=== PATIENT | female | born 1990 | race African-American/Black ===

== ENCOUNTER 2016-12-21 22:47 | Emergency (ER) | payer OTHER ==
--- NOTE | ~2016-12-21 | EKG ---
PATIENT: KALEN JUNE UNIT #: [id number] Ventricular Rate: 75 BPM Atrial Rate: 75 BPM P-R Interval: 158 ms QRS Duration: 78 ms Q-T Interval: 374 ms QTC Calculation(Bezet): 417 ms P Bailey: 51 degrees Calculated R Bailey: 0 degrees Calculated T Bailey: 10 degrees Diagnosis Line: Normal sinus rhythm Diagnosis Line: Normal ECG Diagnosis Line: No previous ECGs available Diagnosis Line: Confirmed by REENA MENDEZ MD ([id number]) on Diagnosis Line: 12/22/2016 1:33:29 PM INTERPRETING MD: ANDREA ROTHMAN
== END 2016-12-22 01:48 | disposition home or self-care (01) ==
LOC: CED 22:47
DX: G43.909 Migraine, unspecified, not intractable, without status migrainosus (principal); F17.210 Nicotine dependence, cigarettes, uncomplicated; Z90.49 Acquired absence of other specified parts of digestive tract; Z88.8 Allergy status to other drugs, medicaments and biological substances
CPT/HCPCS: 36415; 93005; 96374; 96375; 99284; J0780; J1200; J1885